=== PATIENT | female | born 1980 | race Native Hawaiian/Other Pacific Islander ===

== ENCOUNTER 2018-11-26 19:39 | Emergency (ER) | payer OTHER ==
[~2018-11-26] VITALS: Ht 152.4 cm; Wt 122.5 kg
[2018-11-26 21:12] LABS: PLATELET COUNT 392 K/uL (152-353)
[2018-11-26 21:28] LABS: POTASSIUM 3.6 mmol/L (3.6-5.2)
[2018-11-26 23:17] VITALS: BP 173/96; TEMP 98.1
== END 2018-11-26 23:31 | disposition home or self-care (01) ==
LOC: ED 19:39
PROVIDERS: Family Medicine
DX: N23 Unspecified renal colic (principal); I10 Essential (primary) hypertension
CPT/HCPCS: 36415; 80053; 81000; 81025; 85027; 96365; 96374; 96375; 99284; J1885; J2405

== ENCOUNTER 2020-09-29 09:28 | Emergency (ER) | payer OTHER ==
[~2020-09-29] VITALS: Ht 152.4 cm; Wt 122.5 kg
[2020-09-29 09:30] VITALS: TEMP 93
[2020-09-29 11:02] LABS: POTASSIUM 3.6 mmol/L (3.6-5.2); SODIUM 133 mmol/L (136-145)
[2020-09-29 11:16] VITALS: BP 148/83
== END 2020-09-29 11:16 | disposition short-term general hospital (02) ==
LOC: ED 09:28 → EDBD 09:28 → ED 11:16
PROVIDERS: Emergency Medicine Emergency Medical Services
PROC: 0BH17EZ Insertion of Endotracheal Airway into Trachea, Via Natural or Artificial Opening (ICD-10-PCS; principal; 2020-09-29)
PROC: 06HM33Z Insertion of Infusion Device into Right Femoral Vein, Percutaneous Approach (ICD-10-PCS; 2020-09-29)
PROC: 0T9B70Z Drainage of Bladder with Drainage Device, Via Natural or Artificial Opening (ICD-10-PCS; 2020-09-29)
PROC: 0YHH33Z Insertion of Infusion Device into Right Lower Leg, Percutaneous Approach (ICD-10-PCS; 2020-09-29)
DX: I61.9 Nontraumatic intracerebral hemorrhage, unspecified (principal); R40.4 Transient alteration of awareness; Z03.818 Encounter for observation for suspected exposure to other biological agents ruled out
CPT/HCPCS: 80053; 82553; 82948; 87635; 96360; 96361; 96366; 96374; 96375; 99285; C1768; J2250; J3490; U0003